=== PATIENT | female | born 1985 | race Caucasian/White ===

== ENCOUNTER → 2019-07-25 | Outpatient (CLI) | payer OTHER ==
[2019-07-26 02:07] LABS: GLYCOHEMOGLOBIN (HGB A1C) 5.2 % (4.8-5.6)
== END ==
LOC: M.LAB 09:53
PROVIDERS: Obstetrics & Gynecology
DX: N92.6 Irregular menstruation, unspecified (principal)

== ENCOUNTER → 2019-07-28 | Outpatient (CLI) | payer OTHER | LOC: M.ULTRA 07-27 13:00 | DX: N83.202 Unspecified ovarian cyst, left side (principal); N83.201 Unspecified ovarian cyst, right side; N92.6 Irregular menstruation, unspecified ==

== ENCOUNTER → 2019-08-07 | Outpatient (CLI) | payer OTHER ==
[2019-08-08 04:08] LABS: PROLACTIN 9.5 ng/mL (4.8-23.3)
== END ==
LOC: M.LAB 14:37
PROVIDERS: Obstetrics & Gynecology
DX: N92.6 Irregular menstruation, unspecified (principal)

== ENCOUNTER → 2019-08-24 | Outpatient (CLI) | payer OTHER | LOC: M.LAB 14:06 | DX: N92.6 Irregular menstruation, unspecified (principal) ==

== ENCOUNTER → 2020-01-29 | Outpatient (CLI) | payer OTHER | LOC: M.LAB 10:37 | PROVIDERS: ATTEND Internal Medicine | DX: Z11.59 Encounter for screening for other viral diseases (principal) ==